=== PATIENT | female | born 1970 | race Hispanic/Latino ===

== ENCOUNTER 2019-09-15 | Emergency (ER) | payer SELFPAY ==
[~2019-09-15] MED LIST: CIPROFLOXACN500 MG PO; FOLIC ACID1 MG PO; METHOTREXATE2.5 MG PO; PROQUAD SC; PYRIDIUM200 MG PO
[2019-09-15] MEDS ORDERED: NORVASC10 M1 PO (06:04)
[2019-09-15] MEDS ORDERED: KEFLEX500 M1 PO (06:28)
== END 2019-09-15 06:49 | disposition home or self-care (01) | DRG 159 ==
PROC: 0CQ1XZZ Repair Lower Lip, External Approach (ICD-10-PCS; principal; 2019-09-15)
DX: S01.551A Open bite of lip, initial encounter (principal); I10 Essential (primary) hypertension; M06.9 Rheumatoid arthritis, unspecified; W54.0XXA Bitten by dog, initial encounter; Y93.89 Activity, other specified; Y92.003 Bedroom of unspecified non-institutional (private) residence as the place of occurrence of the external cause